=== PATIENT | female | born 1985 | race Hispanic/Latino ===

== ENCOUNTER 2017-09-03 11:37 | Emergency (ER) | payer OTHER ==
[2017-09-03] MEDS ORDERED: Lidocaine 1% PF 5 ML VIAL ONE (12:21)
== END 2017-09-03 13:34 | disposition home or self-care (01) ==
LOC: ERS 11:37
DX: L02.11 Cutaneous abscess of neck (principal); F32.9 Major depressive disorder, single episode, unspecified
CPT/HCPCS: 10060; 87070; 87205; J2001